=== PATIENT | male | born 1940 | race Caucasian/White ===

== ENCOUNTER → 2016-06-16 | Outpatient (CLI) | payer OTHER ==
[~2016-06-16] MED LIST: ASPIRIN81 MG PO; BRILINTA 90 MG90 MG PO; IMDUR ER TAB 3030 MG PO; LIPITOR40 MG PO; LOPRESSOR 25 MG25 MG PO; SEROPHENE50 MG PO; SEROQUEL50 MG PO
== END ==
LOC: KOH-I 12:54
DX: R42 Dizziness and giddiness (principal); R90.89 Other abnormal findings on diagnostic imaging of central nervous system
CPT/HCPCS: 70551